=== PATIENT | male | born 1990 | race Caucasian/White ===

== ENCOUNTER → 2022-05-03 12:59 | Outpatient (BNVA) | payer OTHER, SELFPAY | PROVIDERS: PCP Internal Medicine; Visit Provider Nurse Practitioner Family | DX: F64.0 Transsexualism (principal); Z79.899 Other long term (current) drug therapy | CPT/HCPCS: 99202 ==

== ENCOUNTER 2022-10-31 14:48 | Outpatient (AMB) | payer OTHER, SELFPAY ==
--- NOTE | 2022-10-31 14:53 | MHC.OFFVIS ---
Intake Intake Visit Reasons: 6m follow up/labs ([facility]) Intake Note: Patient presents today for follow up testosterone management/labs Urology Medications: testosterone Blood Thinner: none Die Finisher Required: No Accompanied by: Self / Same As Patient Allergies No Known Allergies Allergy (Verified 10/31/22 15:25) Medication List - Last Reconciled 10/31/22 by MARGOT Anderson-SOHALI testosterone cypionate 200 mg IM QWEEK 30 days HPI HPI Comments History of Present Illness Details Andriy is a 32-year-old transgender male patient. He presents to the office today for follow-up. Of note, patient was seen approximately 6 months ago as a new patient for hormonal therapy. He reports being born a female however since 2008 has been undergoing testosterone hormonal treatment. He has a history of double mastectomy in 2010. He denies any other surgical procedures. Recent testosterone and CBC results reviewed with the patient today 11/06.... Testosterone:589 Testosterone free: 12.4% Hemoglobin:17.2 Hematocrit:50.0 When asked patient reports to be injecting 100 mg of testosterone weekly. He has been utilizing testosterone therapy for over the last 8 years. Discussed at full length abnormal levels of lipids in the blood, increase in blood pressure, cardiovascular disease, and or weight gain with testosterone therapy. Patient reports he is aware as he has done much research through his life time regarding testosterone replacement. Patient reports he typically works out 4-5 times weekly. However has been busy with his new job [employer] and has only been working out 2 days a week which are on his days off Friday and . 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 He denies any urinary issues. He reports be happy with current voiding parameters. In office urinalysis results reviewed with the patient today for He otherwise offers no issues or concerns at this time. [facility] Surgical History H/O bilateral mastectomy Review of Systems Const All systems reviewed & are unremarkable except as noted in HPI and below Reports no additional complaints Eyes Reports no additional complaints ENT Reports no additional complaints Card Reports no additional complaints Resp Reports no additional complaints GI Denies abdominal pain and Denies nausea Reports as per HPI Musc Denies no additional complaints Neuro Reports no additional complaints Psych Reports no additional complaints Miquel/Lymph Reports no additional complaints Aller/Immun Reports no additional complaints Physical Exam Const General: cooperative, healthy appearing, comfortable, no acute distress, well developed, alert and awake Nutritional Appearance: average body habitus Orientation/consciousness: patient oriented x3 Limitations: no limitations HEENT Head: Yes normal to inspection, Yes normocephalic and Yes atraumatic Ears: hearing grossly normal bilaterally Eyes General: appearance normal, both eyes and all related structures Neck Neck: Yes normal visual inspection and Yes trachea midline Chest Chest palpation & inspection: normal inspection of the chest Resp Effort & Inspection: normal respiratory effort and able to speak in complete sentences Cardio Rate: regular rate GI Inspection: Yes normal to inspection General: Yes no CVA tenderness Back/Spine/Pelvis Back: no CVA tenderness Skin General skin exam: no rashes or lesions noted Neuro General: patient oriented x3 Extrem General: Yes normal to inspection Psych Appearance: grossly normal and well kempt Mental Status: mental status grossly normal Speech and movement: Normal speech and movement present and Clear speech present Affect: normal affect Attitude: cooperative Thought process: Normal thought process present Thought content: Normal thought content present Insight: Good insight present (Psych) Judgement: Good judgement present (Psych) Results AMB Urinalysis, Automated UA Leukoctes 15 Khalif/uL Last Edit by [employer] on 10/31/22 15:06 UA Nitrite Negative Last Edit by [employer] on 10/31/22 15:06 UA Urobilinogen 0.2 mg/dL Last Edit by [employer] on 10/31/22 15:06 UA Protein 0 mg/dL Last Edit by [employer] on 10/31/22 15:06 UA pH 6.0 Last Edit by [employer] on 10/31/22 15:06 UA Blood 0 Ignacio/uL Last Edit by [employer] on 10/31/22 15:06 UA Specific [place] 1.015 Last Edit by [employer] on 10/31/22 15:06 UA Ketone Negative Last Edit by [employer] on 10/31/22 15:06 UA Bilirubin 0 mg/dL Last Edit by [employer] on 10/31/22 15:06 UA Glucose 0 mg/dL Last Edit by [employer] on 10/31/22 15:06 Results Reviewed Results Reviewed: Laboratory Last Values Urine pH (Auto) 6.0 08/17/23 14:54 Specific [place] (Auto) 1.015 10/31/22 14:54 Urine Protein (Auto) 0 mg/dL 10/31/22 14:54 Glucose (UA)(Auto) 0 mg/dL 10/31/22 14:54 Urine Ketones (Auto) Negative 10/31/22 14:54 Urine Blood (Auto) 0 Ignacio/uL 10/31/22 14:54 Urine Nitrite (Auto) Negative 10/31/22 14:54 Urine Bilirubin (Auto) 0 mg/dL 10/31/22 14:54 Urine Urobilinogen (Auto) 0.2 mg/dL 10/31/22 14:54 Leukocyte Esterase (Auto) 15 Khalif/uL 10/31/22 14:54 Assessment & Plan Assessment & Plan (1) 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 Recent testosterone and CBC results reviewed with the patient today; as noted above. Continue with testosterone as discussed and prescribed; continue with 100 mg weekly; refill prescription provided Discussed at length affects of testosterone on the body as well as overall health and well-being. Patient denies any urinary issues or concerns at this time. He is happy with his current voiding parameters Testosterone, testosterone free and total, and CBC in 6 months Follow-up in 6 months with labs to be completed prior or sooner with any issues, concerns, and or questions. 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 All questions were answered. Physical exam, labs, and imaging were discussed and reviewed in detail. As well as risks, benefits, and discussion of treatment choices. No major barriers to understanding were identified. The patient expressed understanding and agreement with the above treatment plan. The patient was made aware they should contact our office by phone for worsening of their current condition, the appearance of new symptoms, or with any questions or concerns. Compliance is encouraged with any medications and follow up testing that is ordered. It is a privilege to be allowed the opportunity to participate in? your urological care.? Again, if you have any questions or concerns If you have any questions or concerns please do not hesitate to contact me. The office is [phone]. This note is constructed using voice recognition software. While every effort has been made to ensure accuracy top coater errors may have been included. 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
== END 2022-10-31 15:25 | disposition home or self-care (01) ==
PROVIDERS: PCP Internal Medicine; Visit Provider Nurse Practitioner Family
DX: F64.0 Transsexualism (principal); Z79.899 Other long term (current) drug therapy; Z13.9 Encounter for screening, unspecified
CPT/HCPCS: 99213

== ENCOUNTER → 2022-10-31 14:48 | Outpatient (BNVA) | payer OTHER, SELFPAY | PROVIDERS: Visit Provider Nurse Practitioner Family | DX: F64.0 Transsexualism (principal); Z79.899 Other long term (current) drug therapy | CPT/HCPCS: 81003; 99212 ==

== ENCOUNTER 2023-05-01 15:25 | Outpatient (AMB) | payer OTHER, SELFPAY ==
--- NOTE | 2023-05-01 15:37 | A.OFFVIS_ITS ---
Intake Intake Visit Reasons: 6m/labs Intake Note: Patient presents today for follow up testosterone management/labs (testosterone labs pending) Urology Medications: testosterone Blood Thinner: none Leather Cleaner Required: No Accompanied by: Self / Same As Patient Allergies No Known Allergies Allergy (Verified 05/01/23 21:22) Medication List - Last Reconciled 05/01/23 by PEDRO AndersonP- testosterone cypionate 200 mg IM QWEEK 30 days HPI HPI Comments History of Present Illness Details Andriy is a 32-year-old transgender male patient. He presents to the office today for follow-up. He reports being born a female however since 2008 has been undergoing testosterone hormonal treatment. He has a history of double mastectomy in 2010. He denies any other surgical procedures. Recent CBC results reviewed with the patient however testosterone remains pending. Testosterone: 11/06--589, 05/10 pending Testosterone free: 11/06--12.4%, 05/10 pending Hemoglobin: 11/06--17.2, 05/10--16.0 Hematocrit: 11/06--50.0, 05/10--47.4 When asked patient reports to be injecting 100 mg of testosterone weekly. He has been utilizing testosterone therapy for over the last 10 years. Discussed at length abnormal levels of lipids in the blood, increase in blood pressure, cardiovascular disease, and or weight gain with testosterone therapy. Patient reports he is aware as he has done much research through his life time regarding testosterone replacement. Patient reports he typically works out 4-5 times weekly. 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 He denies any urinary issues. He reports be happy with current voiding parameters. In office urinalysis results reviewed with the patient today. He discusses how his mom is currently dealing with multiple medical issues. He otherwise offers no issues or concerns at this time. [facility] Surgical History H/O bilateral mastectomy Review of Systems Const All systems reviewed & are unremarkable except as noted in HPI and below Reports no additional complaints Eyes Reports no additional complaints ENT Reports no additional complaints Card Reports no additional complaints Resp Reports no additional complaints GI Denies abdominal pain and Denies nausea Reports as per HPI Musc Denies no additional complaints Neuro Reports no additional complaints Psych Reports no additional complaints Miquel/Lymph Reports no additional complaints Aller/Immun Reports no additional complaints Physical Exam Const General: cooperative, healthy appearing, comfortable, no acute distress, well developed, alert and awake Nutritional Appearance: average body habitus Orientation/consciousness: patient oriented x3 Limitations: no limitations HEENT Head: Yes normal to inspection, Yes normocephalic and Yes atraumatic Ears: hearing grossly normal bilaterally Eyes General: appearance normal, both eyes and all related structures Neck Neck: Yes normal visual inspection and Yes trachea midline Chest Chest palpation & inspection: normal inspection of the chest Resp Effort & Inspection: normal respiratory effort and able to speak in complete sentences Cardio Rate: regular rate GI Inspection: Yes normal to inspection General: Yes no CVA tenderness Back/Spine/Pelvis Back: no CVA tenderness Skin General skin exam: no rashes or lesions noted Neuro General: patient oriented x3 Extrem General: Yes normal to inspection Psych Appearance: grossly normal and well kempt Mental Status: mental status grossly normal Speech and movement: Normal speech and movement present and Clear speech present Affect: normal affect Attitude: cooperative Thought process: Normal thought process present Thought content: Normal thought content present Insight: Good insight present (Psych) Judgement: Good judgement present (Psych) Results AMB Urinalysis, Automated UA Leukoctes 0 Khalif/uL Last Edit by [employer] on 05/01/23 15:50 UA Nitrite Negative Last Edit by [employer] on 05/01/23 15:50 UA Urobilinogen 0.2 mg/dL Last Edit by [employer] on 05/01/23 15:50 UA Protein 15 mg/dL Last Edit by [employer] on 05/01/23 15:50 UA pH 7.0 Last Edit by [employer] on 05/01/23 15:50 UA Blood 0 Ignacio/uL Last Edit by [employer] on 05/01/23 15:50 UA Specific [place] 1.015 Last Edit by [employer] on 05/01/23 15:50 UA Ketone Negative Last Edit by [employer] on 05/01/23 15:50 UA Bilirubin 0 mg/dL Last Edit by [employer] on 05/01/23 15:50 UA Glucose 0 mg/dL Last Edit by [employer] on 05/01/23 15:50 Results Reviewed Results Reviewed: Laboratory Last Values Urine pH (Auto) 7.0 05/01/23 15:38 Specific [place] (Auto) 1.015 05/01/23 15:38 Urine Protein (Auto) 15 mg/dL 05/01/23 15:38 Glucose (UA)(Auto) 0 mg/dL 05/01/23 15:38 Urine Ketones (Auto) Negative 05/01/23 15:38 Urine Blood (Auto) 0 Ignacio/uL 05/01/23 15:38 Urine Nitrite (Auto) Negative 05/01/23 15:38 Urine Bilirubin (Auto) 0 mg/dL 05/01/23 15:38 Urine Urobilinogen (Auto) 0.2 mg/dL 05/01/23 15:38 Leukocyte Esterase (Auto) 0 Khalif/uL 05/01/23 15:38 Assessment & Plan Assessment & Plan (1) 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 Recent CBC results reviewed with the patient today; as noted above; testosterone is pending will call patient with results. Continue with testosterone as discussed and prescribed; continue with 100 mg weekly; refill prescription provided Discussed at length affects of testosterone on the body as well as overall health and well-being. Patient denies any urinary issues or concerns at this time. He is happy with his current voiding parameters Testosterone, testosterone free and total, CBC, BMP, and liver enzymes in 6 months Follow-up in 6 months with labs to be completed prior or sooner with any issues, concerns, and or questions. 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 All questions were answered. Physical exam, labs, and imaging were discussed and reviewed in detail. As well as risks, benefits, and discussion of treatment choices. No major barriers to understanding were identified. The patient expressed understanding and agreement with the above treatment plan. The patient was made aware they should contact our office by phone for worsening of their current condition, the appearance of new symptoms, or with any questions or concerns. Compliance is encouraged with any medications and follow up testing that is ordered. It is a privilege to be allowed the opportunity to participate in? your urological care.? Again, if you have any questions or concerns If you have any questions or concerns please do not hesitate to contact me. The office is [phone]. This note is constructed using voice recognition software. While every effort gibson s been made to ensure accuracy geriatric assistant errors may have been included. Yours sincerely, SETH Anderson Coding Level of Care Code Est Pt Level 4 (08198) Diagnoses Transgender man on hormone therapy F64.0; Z79.899
== END 2023-05-01 16:17 | disposition home or self-care (01) ==
LOC: HO.HUSH 15:25
PROVIDERS: PCP Internal Medicine; Visit Provider Nurse Practitioner Family
DX: F64.0 Transsexualism (principal); Z79.899 Other long term (current) drug therapy
CPT/HCPCS: 99214

== ENCOUNTER → 2023-05-01 15:25 | Outpatient (BNVA) | payer OTHER, SELFPAY | PROVIDERS: PCP Internal Medicine; Visit Provider Nurse Practitioner Family | DX: F64.0 Transsexualism (principal); Z79.899 Other long term (current) drug therapy | CPT/HCPCS: 81003; 99212 ==

== ENCOUNTER 2023-11-05 11:40 | Outpatient (AMB) | payer OTHER, SELFPAY ==
--- NOTE | 2023-11-05 11:40 | MHC.OFFVIS ---
Intake Visit Reasons: 6m/labs Intake Note: Patient presents today for follow up testosterone management/labs Urology Medications: testosterone Blood Thinner: none Fur Operator Required: No Accompanied by: Self / Same As Patient Allergies No Known Allergies Allergy (Verified 11/05/23 12:30) Medication List - Last Reconciled 11/05/23 by SETH Anderson testosterone cypionate 200 mg IM QWEEK 30 days HPI Comments Details: Andriy is a 33-year-old transgender male patient. He is being followed up via video telehealth. He reports being born a female however since 2008 has been undergoing testosterone hormonal treatment. He has a history of double mastectomy in 2010. He denies any other surgical procedures. Recent CBC results and testosterone results reviewed with the patient today. As noted and trended below: Testosterone: 11/06 589, 05/10 499, 11/07 292 Testosterone free: 11/06--12.4%, 05/10 16.5, 11/07 6.60 Hemoglobin: 11/06 17.2, 05/10 16.0, 11/07 16.6 Hematocrit: 11/06 50.0, 05/10 47.4, 11/07 46.4 He reports over the last 2 months he has been inconsistent with testosterone replacement. When asked patient reports to be injecting 100 mg of testosterone weekly. He reports he had been injecting testosterone 50 mg 2 times per week and felt this made him feel better however has been busy at work and therefore has been inconsistent with testosterone replacement. He has been utilizing testosterone therapy for over the last 11 years. Discussed at length abnormal levels of lipids in the blood, increase in blood pressure, cardiovascular disease, and or weight gain with testosterone therapy. Patient reports he is aware as he has done much research through his life time regarding testosterone replacement. Patient reports he typically works out 4-5 times weekly. 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 He denies any urinary issues. He reports be happy with current voiding parameters. In office urinalysis results reviewed with the patient today. He discusses how his mom is currently dealing with multiple medical issues. He otherwise offers no issues or concerns at this time. [facility] Surgical History H/O bilateral mastectomy Review of Systems Const All systems reviewed & are unremarkable except as noted in HPI and below Reports no additional complaints Eyes Reports no additional complaints ENT Reports no additional complaints Card Reports no additional complaints Resp Reports no additional complaints GI Denies abdominal pain and Denies nausea Reports as per HPI Musc Denies no additional complaints Neuro Reports no additional complaints Psych Reports no additional complaints Miquel/Lymph Reports no additional complaints Aller/Immun Reports no additional complaints Physical Exam Const General: cooperative, healthy appearing, comfortable, no acute distress, well developed, alert and awake Orientation/consciousness: patient oriented x3 Resp Effort & Inspection: normal respiratory effort and able to speak in complete sentences Neuro General: patient oriented x3 Psych Mental Status: mental status grossly normal Speech and movement: Clear speech present Attitude: cooperative Thought process: Normal thought process present Thought content: Normal thought content present Insight: Fair insight present (Psych) Judgement: Fair judgement present (Psych) Telehealth Telehealth Telehealth Platform: [employer] Location of provider rendering services: practice address Location of patient: address on file Patient Identification confirmed using: Name, : Yes Telehealth method: video Patient verbally consented to treatment: Yes Patient verbally consented to billing insurance company: Yes Patient informed of any privacy concerns related to visit: Yes Minutes spent on Phone/Video with Pt.: 15 Assessment & Plan Assessment & Plan (1) 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 Continue with testosterone as discussed and prescribed; continue with 100 mg weekly; refill prescription provided Discussed at length affects of testosterone on the body as well as overall health and well-being. Patient denies any urinary issues or concerns at this time. He is happy with his current voiding parameters Refill provided. Discussed, educated, and stressed the importance of taking medication as prescribed. Will reassess labs in 3 months (CBC and testosterone free and total) Follow-up in 3 months with labs to be completed prior or sooner with any issues, concerns, and or questions. 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 All questions were answered. Physical exam, labs, and imaging were discussed and reviewed in detail. As well as risks, benefits, and discussion of treatment choices. No major barriers to understanding were identified. The patient expressed understanding and agreement with the above treatment plan. The patient was made aware they should contact our office by phone for worsening of their current condition, the appearance of new symptoms, or with any questions or concerns. Compliance is encouraged with any medications and follow up testing that is ordered. It is a privilege to be allowed the opportunity to participate in? your urological care.? Again, if you have any questions or concerns If you have any questions or concerns please do not hesitate to contact me. The office is [phone]. This note is constructed using voice recognition software. While every effort has been made to ensure accuracy jacker feeder errors may have been included. Yours sincerely, SETH Anderson Coding Level of Care Code Tele Est Pt Level 3 (95054) Diagnoses Transgender man on hormone therapy F64.0; Z79.899
== END 2023-11-05 12:32 | disposition home or self-care (01) ==
LOC: HO.HUSH 11:40
PROVIDERS: PCP Internal Medicine; Visit Provider Nurse Practitioner Family
DX: F64.0 Transsexualism (principal); Z79.899 Other long term (current) drug therapy
CPT/HCPCS: 99213

== ENCOUNTER → 2023-11-05 11:40 | Outpatient (BNVA) | payer OTHER, SELFPAY | PROVIDERS: PCP Internal Medicine; Visit Provider Nurse Practitioner Family ==

== ENCOUNTER 2024-02-04 13:26 | Outpatient (AMB) | payer OTHER, SELFPAY ==
--- NOTE | 2024-02-04 13:43 | A.OFFVIS_ITS ---
Intake Visit Reasons: 3m/labs Intake Note: Patient presents today for follow up testosterone management/labs Urology Medications: testosterone Blood Thinner: none Living Supervisor Required: No Accompanied by: Self / Same As Patient Allergies No Known Allergies Allergy (Verified 02/04/24 14:19) Medication List - Last Reconciled 02/04/24 by MARGOT Anderson-SOHAIL testosterone cypionate 200 mg IM QWEEK 30 days HPI Comments Details: Andriy is a 33-year-old transgender male patient. He presents to the office today for follow-up. He reports being born a female however since 2008 has been undergoing testosterone hormonal treatment. He has a history of double mastectomy in 2010. He denies any other surgical procedures. Recent CBC results and testosterone results reviewed with the patient today. As noted and trended below: Testosterone: 11/06 589, 05/10 499, 11/07 292, 02/07 894 Testosterone free: 11/06--12.4%, 05/10 16.5, 11/07 6.60, 02/07 23.4 Hemoglobin: 11/06 17.2, 05/10 16.0, 11/07 16.6, 02/07 18.1 Hematocrit: 11/06 50.0, 05/10 47.4, 11/07 46.4, 02/07 50.2 In discussion with the patient today he reports to be doing and feeling well. He reports to be injecting testosterone 50 mg 2 times per week and felt this has been helpful in normalizing his overall health and well-being. He discusses being currently unemployed and is attempting to catch up on his house work. He discusses his new dog. He has been utilizing testosterone therapy for over the last 12 years. Discussed abnormal levels of lipids in the blood, increase in blood pressure, cardiovascular disease, and or weight gain with testosterone therapy. Patient reports he is aware as he has done much research through his life time regarding testosterone replacement. Patient reports he typically works out 4-5 times weekly. 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 He denies any urinary issues. He reports be happy with current voiding parameters. In office urinalysis results reviewed with the patient today. He otherwise offers no issues or concerns at this time. [facility] Surgical History H/O bilateral mastectomy Review of Systems Const All systems reviewed & are unremarkable except as noted in HPI and below Reports no additional complaints Eyes Reports no additional complaints ENT Reports no additional complaints Card Reports no additional complaints Resp Reports no additional complaints GI Denies abdominal pain and Denies nausea Reports as per HPI Musc Denies no additional complaints Neuro Reports no additional complaints Psych Reports no additional complaints Miquel/Lymph Reports no additional complaints Aller/Immun Reports no additional complaints Physical Exam Const General: cooperative, healthy appearing, comfortable, no acute distress, well developed, alert and awake Orientation/consciousness: patient oriented x3 Limitations: no limitations HEENT Head: Yes normal to inspection, Yes normocephalic and Yes atraumatic Ears: hearing grossly normal bilaterally Eyes General: appearance normal, both eyes and all related structures Neck Neck: Yes normal visual inspection and Yes trachea midline Chest Chest palpation & inspection: normal inspection of the chest Resp Effort & Inspection: normal respiratory effort and able to speak in complete sentences Cardio Rate: regular rate GI Inspection: Yes normal to inspection General: Yes no CVA tenderness Back/Spine/Pelvis Back: no CVA tenderness Skin General skin exam: no rashes or lesions noted Neuro General: patient oriented x3 Extrem General: Yes normal to inspection Psych Appearance: grossly normal and well kempt Mental Status: mental status grossly normal Speech and movement: Clear speech present Affect: normal affect Attitude: cooperative Thought process: Normal thought process present Thought content: Normal thought content present Insight: Fair insight present (Psych) Judgement: Fair judgement present (Psych) Results AMB Urinalysis, Automated UA Leukoctes 0 Khalif/uL Last Edit by [employer] on 02/04/24 14:11 UA Nitrite Last Edit by [employer] on 02/04/24 14:11 UA Urobilinogen 0.2 mg/dL Last Edit by [employer] on 02/04/24 14:11 UA Protein 0 mg/dL Last Edit by [employer] on 02/04/24 14:11 UA pH 7.0 Last Edit by [employer] on 02/04/24 14:11 UA Blood 0 Ignacio/uL Last Edit by [employer] on 02/04/24 14:11 UA Specific [place] 1.010 Last Edit by [employer] on 02/04/24 14:11 UA Ketone Last Edit by [employer] on 02/04/24 14:11 UA Bilirubin 0 mg/dL Last Edit by [employer] on 02/04/24 14:11 UA Glucose 0 mg/dL Last Edit by [employer] on 02/04/24 14:11 Results Reviewed Results Reviewed: Laboratory Last Values Urine pH (Auto) 7.0 02/04/24 14:06 Specific [place] (Auto) 1.010 02/04/24 14:06 Urine Protein (Auto) 0 mg/dL 02/04/24 14:06 Glucose (UA)(Auto) 0 mg/dL 02/04/24 14:06 Urine Blood (Auto) 0 Ignacio/uL 02/04/24 14:06 Urine Bilirubin (Auto) 0 mg/dL 02/04/24 14:06 Urine Urobilinogen (Auto) 0.2 mg/dL 02/04/24 14:06 Leukocyte Esterase (Auto) 0 Khalif/uL 02/04/24 14:06 Assessment & Plan Assessment & Plan (1) 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 Continue with testosterone as discussed and prescribed; continue with 100 mg weekly; refill prescription provided Discussed at length affects of testosterone on the body as well as overall health and well-being. Patient denies any urinary issues or concerns at this time. He is happy with his current voiding parameters Refill provided. Discussed, educated, and stressed the importance of taking medication as prescribed. Will reassess labs in 6 months (CBC and testosterone free and total) Follow-up in 6 months with labs to be completed prior or sooner with any issues, concerns, and or questions. 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 All questions were answered. Physical exam, labs, and imaging were discussed and reviewed in detail. As well as risks, benefits, and discussion of treatment choices. No major barriers to understanding were identified. The patient expressed understanding and agreement with the above treatment plan. The patient was made aware they should contact our office by phone for worsening of their current condition, the appearance of new symptoms, or with any questions or concerns. Compliance is encouraged with any medications and follow up testing that is ordered. It is a privilege to be allowed the opportunity to participate in? your urological care.? Again, if you have any questions or concerns If you have any questions or concerns please do not hesitate to contact me. The office is [phone]. This note is constructed using voice recognition software. While every effort has been made to ensure accuracy electronic tester errors may have been included. Yours sincerely, SETH Anderson Coding Level of Care Code Est Pt Level 3 (13677) Diagnoses Transgender man on hormone therapy F64.0; Z79.899
== END 2024-02-04 14:21 | disposition home or self-care (01) ==
PROVIDERS: PCP Internal Medicine; Visit Provider Nurse Practitioner Family
DX: F64.0 Transsexualism (principal); Z79.899 Other long term (current) drug therapy; Z13.9 Encounter for screening, unspecified
CPT/HCPCS: 99213

== ENCOUNTER → 2024-02-04 13:26 | Outpatient (BNVA) | payer OTHER, SELFPAY | PROVIDERS: PCP Internal Medicine; Visit Provider Nurse Practitioner Family | DX: F64.0 Transsexualism (principal); Z79.899 Other long term (current) drug therapy | CPT/HCPCS: 81003; 99212 ==

== ENCOUNTER 2024-07-08 09:18 | Outpatient (AMB) | payer OTHER, SELFPAY ==
--- NOTE | 2024-07-08 09:24 | A.OFFVIS_ITS ---
Intake Visit Reasons: 6m/labs Intake Note: Patient presents today for follow up testosterone management/labs Testosterone: 1150; Free Testosterone: 32.4 Urology Medications: testosterone Blood Thinner: none Clothing Designer Required: No Accompanied by: Self / Same As Patient Allergies No Known Allergies Allergy (Verified 07/08/24 10:02) Medication List - Last Reconciled 07/08/24 by SETH Anderson testosterone cypionate 200 mg IM QWEEK 30 days HPI Comments Details: Andriy is a 34-year-old transgender male patient of Dr. Michele. He presents to the office today for follow-up. He reports being born a female however since 2008 has been undergoing testosterone hormonal treatment. He has a history of double mastectomy in 2010. He denies any other surgical procedures. Recent CBC results and testosterone results reviewed with the patient today. As noted and trended below: Testosterone: 11/06 589, 05/10 499, 11/07 292, 02/07 894, 07/09 1150 Testosterone free: 11/06--12.4%, 05/10 16.5, 11/07 6.60, 02/07 23.4, 07/09 32.4 Hemoglobin: 11/06 17.2, 05/10 16.0, 11/07 16.6, 02/07 18.1, 07/09 17.3 Hematocrit: 11/06 50.0, 05/10 47.4, 11/07 46.4, 02/07 50.2, 07/09 50.0 In discussion with the patient today he reports to be doing and feeling well. He reports to be injecting testosterone 50 mg 2 times per week and felt this has been helpful in normalizing his overall health and well-being. He discusses being busy at work. He has been utilizing testosterone therapy for over the last 13 years. Discussed abnormal levels of lipids in the blood, increase in blood pressure, cardiovascular disease, and or weight gain with testosterone therapy. He discusses having received letter from PCP and will be establishing new PCP with [facility]. We discussed importance of assessing cardiovascular function given affects of testosterone replacement. He denies any urinary issues. He reports be happy with current voiding parameters. In office urinalysis results reviewed with the patient today. He does report a history of an umbilical hernia and is enquiring referral to general surgery for further assessment evaluation. He otherwise offers no issues or concerns at this time. History of Present Illness The patient is a 34-year-old male presenting with an umbilical hernia and reyna rns regarding testosterone therapy management. The umbilical hernia was identified a year ago during a routine physical examination. 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 The discomfort is not described as pain but is noticeable during physical exertion. He is concerned about its progression. Testosterone therapy management involves injections, with current lab results demonstrating testosterone levels at the higher end of the normal range. The patient has been inconsistent with the timing of lab tests relative to injection dates, affecting result consistency. His therapy is adjusted in conjunction with his exercise schedule, and he seeks assistance in maintaining optimal testosterone levels while monitoring potential cardiovascular impacts. Plan An umbilical hernia consult with general surgery is planned due to increasing discomfort related to physical exertion. No immediate intervention is required; monitoring is advised. For testosterone therapy, I advised consistent timing between injections and lab tests for accurate readings. Current dosage maintenance is appropriate unless cardiovascular risks emerge. Primary care will be consulted for comprehensive health assessments, including testosterone management monitoring via annual bloodwork. Patient was informed and verbally consented to the use of an ambient scribe for clinic note documentation during this visit. Discussion Notes During our discussion, I advised the patient of the potential need for surgical intervention for the umbilical hernia and explained the risks and benefits. The patient was receptive to a referral for a surgical consultation, understanding the possibility of future complications. Regarding testosterone therapy, we discussed the significance of proper synchronization of injection and lab testing and its impact on results, addressing the importance of maintaining patient safety. We also discussed the coordination of care with his primary physician to ensure comprehensive health monitoring, particularly concerning cardiovascular health, given his elevated testosterone levels. Follow-up was discussed for surgical consult and regular testosterone monitoring. [facility] Surgical History H/O bilateral mastectomy Review of Systems Const All systems reviewed & are unremarkable except as noted in HPI and below Physical Exam Const General: cooperative, healthy appearing, comfortable, no acute distress, well developed, alert and awake Orientation/consciousness: patient oriented x3 Limitations: no limitations HEENT Head: Yes normal to inspection, Yes normocephalic and Yes atraumatic Ears: hearing grossly normal bilaterally Eyes General: appearance normal, both eyes and all related structures Neck Neck: Yes normal visual inspection and Yes trachea midline Chest Chest palpation & inspection: normal inspection of the chest Resp Effort & Inspection: normal respiratory effort and able to speak in complete sentences Cardio Rate: regular rate GI Inspection: Yes normal to inspection General: Yes no CVA tenderness Back/Spine/Pelvis Back: no CVA tenderness Skin General skin exam: no rashes or lesions noted Neuro General: patient oriented x3 Extrem General: Yes normal to inspection Psych Appearance: grossly normal and well kempt Mental Status: mental status grossly normal Speech and movement: Clear speech present Affect: normal affect Attitude: cooperative Thought process: Normal thought process present Thought content: Normal thought content present Insight: Fair insight present (Psych) Judgement: Fair judgement present (Psych) Results AMB Urinalysis, Automated UA Leukoctes 0 Khalif/uL Last Edit by [email or web address] on 07/08/24 09:36 UA Nitrite Last Edit by [email or web address] on 07/08/24 09:36 UA Urobilinogen 0.2 mg/dL Last Edit by [email or web address] on 07/08/24 09:36 UA Protein 0 mg/dL Last Edit by [email or web address] on 07/08/24 09:36 UA pH 6.5 Last Edit by [email or web address] on 07/08/24 09:36 UA Blood 0 Ignacio/uL Last Edit by [email or web address] on 07/08/24 09:36 UA Specific [place] 1.010 Last Edit by [email or web address] on 07/08/24 09:36 UA Ketone Last Edit by [email or web address] on 07/08/24 09:36 UA Bilirubin 0 mg/dL Last Edit by [email or web address] on 07/08/24 09:36 UA Glucose 0 mg/dL Last Edit by [email or web address] on 07/08/24 09:36 Results Reviewed Results Reviewed: Laboratory Last Values Urine pH (Auto) 6.5 07/08/24 09:29 Specific [place] (Auto) 1.010 07/08/24 09:29 Urine Protein (Auto) 0 mg/dL 07/08/24 09:29 Glucose (UA)(Auto) 0 mg/dL 07/08/24 09:29 Urine Blood (Auto) 0 Ignacio/uL 07/08/24 09:29 Urine Bilirubin (Auto) 0 mg/dL 07/08/24 09:29 Urine Urobilinogen (Auto) 0.2 mg/dL 07/08/24 09:29 Leukocyte Esterase (Auto) 0 Khalif/uL 07/08/24 09:29 Assessment & Plan Assessment & Plan (1) 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 Continue with testosterone as discussed and prescribed; refill prescription provided Discussed at length affects of testosterone on the body as well as overall health and well-being. Patient denies any urinary issues or concerns at this time. He is happy with his current voiding parameters Will refer to general surgery for further assessment evaluation of umbilical hernia. Discussed, educated, and stressed the importance of taking medication as prescribed. Will reassess labs in 6 months (CBC and testosterone free and total) Follow-up in 6 months with labs to be completed prior or sooner with any issues, concerns, and or questions. 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 All questions were answered. Physical exam, labs, and imaging were discussed and reviewed in detail. As well as risks, benefits, and discussion of treatment choices. No major barriers to understanding were identified. The patient expressed understanding and agreement with the above treatment plan. The patient was made aware they should contact our office by phone for worsening of their current condition, the appearance of new symptoms, or with any questions or concerns. Compliance is encouraged with any medications and follow up testing that is ordered. It is a privilege to be allowed the opportunity to participate in? your urological care.? Again, if you have any questions or concerns If you have any questions or concerns please do not hesitate to contact me. The office is [phone]. This note is constructed using voice recognition software. While every effort has been made to ensure accuracy hollow handle knife assembler errors may have been included. Yours sincerely, SETH Anderson Coding Level of Care Code Est Pt Level 3 (45369) Diagnoses Transgender man on hormone therapy F64.0; Z79.899
== END 2024-07-08 10:02 | disposition home or self-care (01) ==
LOC: HO.HUSH 09:18
PROVIDERS: PCP Internal Medicine; Visit Provider Nurse Practitioner Family
DX: F64.0 Transsexualism (principal); Z79.899 Other long term (current) drug therapy; Z13.9 Encounter for screening, unspecified
CPT/HCPCS: 99213

== ENCOUNTER → 2024-07-08 09:18 | Outpatient (BNVA) | payer OTHER, SELFPAY | PROVIDERS: PCP Internal Medicine; Visit Provider Nurse Practitioner Family | DX: K42.9 Umbilical hernia without obstruction or gangrene (principal); F64.0 Transsexualism; Z79.899 Other long term (current) drug therapy | CPT/HCPCS: 81003; 99212 ==

== ENCOUNTER 2024-09-08 09:43 | Outpatient (AMB) | payer OTHER, SELFPAY ==
--- NOTE | 2024-09-08 09:44 | MHC.OFFVIS ---
Vital Signs 09/08/24 09:52 Height 6 ft Weight 232 lb BMI 31.5 BP 134/72 Blood Pressure Location Rt brachial Position Sitting Pulse 56 Intake Visit Reasons: Umbilical hernia Intake Note: Patient referred by Анна QUINTANA for umbilical hernia. Present since last year. Patient c/o: only bothersome at times. Small bulge noticeable. Assistant General Manager Required: No Accompanied by: Self / Same As Patient Allergies No Known Allergies Allergy (Verified 09/08/24 09:49) Medication List - Last Reconciled 09/08/24 by Bill Hatch MD testosterone cypionate 200 mg IM QWEEK 30 days HPI HPI Umbilical hernia: Details: 34-year-old male referred for an umbilical hernia. 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 He does state that since that time, he was noticing this lump on his umbilicus that would be spontaneous reducible He says that he works with a lot of heavy lifting so he would notice this hernia periodically at work. He describes occasional discomfort. He does not think that the hernia has is increased in size. He says he is healthy overall. [facility] Surgical History H/O bilateral mastectomy Family History Paternal Grandmother Ovarian cancer Paternal Aunt Ovarian cancer Social History Alcohol intake: never Patient Tobacco Use Status: Never used Tobacco Review of Systems Const Denies chills and Denies fever(s) Card Denies chest pain, Denies dyspnea and Denies dyspnea on exertion Resp Denies cough, Denies dyspnea and Denies dyspnea on exertion GI Denies hematochezia and Denies change in bowel habits Denies hematuria and Denies difficulty urinating Musc Denies back pain and Denies limited range of motion Neuro Denies focal weakness and Denies convulsions Psych Denies depression and Denies mood swings Physical Exam Vital Signs: Last Vital Signs Pulse 56 09/08/24 09:52 BP 134/72 09/08/24 09:52 BMI result Body Mass Index 31.5 Const General: comfortable and no acute distress Orientation/consciousness: patient oriented x3 Neck Neck: Yes no lymphadenopathy Resp Auscultation: clear to auscultation bilaterally Cardio Rhythm: regular rhythm GI Other: Umbilical hernia, reducible, about 2 cm in diameter, nontender Palpation (GI): Soft to palpation, nontender and no guarding Neuro General: patient oriented x3 Assessment & Plan Assessment & Plan (1) Umbilical hernia: Code(s): K42.9 - Umbilical hernia without obstruction or gangrene Category: Medical Plan: He has a reducible umbilical hernia as described above. He wants this repaired as his work entails a lot of heavy lifting I had a long discussion with him about the technique of repair of the umbilical hernia with possible mesh. I reviewed the risks including but not limited to bleeding, infections, recurrence, injury to the bowel or other organs, inherent risks of anesthesia, as well as the benefits and alternatives. I also described to be him what to expect postoperatively He understands and says he will schedule for this. Coding Level of Care Code New Pt Level 3 (65767) Diagnoses Umbilical hernia K42.9
[2024-09-08 09:52] VITALS: BP 134/72; PULSE 56; BMI 31.5
== END 2024-09-08 10:28 | disposition home or self-care (01) ==
LOC: HO.HGS 09:43
PROVIDERS: PCP Internal Medicine; Visit Provider Surgery
DX: K42.9 Umbilical hernia without obstruction or gangrene (principal)
CPT/HCPCS: 99203

== ENCOUNTER → 2024-09-08 09:43 | Outpatient (BNVA) | payer OTHER, SELFPAY | PROVIDERS: PCP Internal Medicine; Visit Provider Surgery | DX: K42.9 Umbilical hernia without obstruction or gangrene (principal) | CPT/HCPCS: 99202 ==

== ENCOUNTER 2025-01-18 05:54 | Day surgery (SDC) | payer OTHER, SELFPAY ==
--- OUTSIDE RECORDS SUMMARY | 2025-01-13 17:47 | XMS_ITS | Encounter Summary ---
Author Organization [facility] Address [address] [place] [address] [address] [place] [address] Phone Care Team Providers Care Mechanic/Welder Name Role Phone Greta Curtis MD, MPH Primary Care Provid er Encounter Details Date Type Department Care Team (Late st Contact Info) Description 2021 Transcribe Orders [facility] [address] [place] [address] Greta Curtis MD, MPH [address] [facility] [address] [place] [address] [email or web address] Social History Tobacco Use Types Packs/Day Years Used Date Smoking Tobacco: Former Cigarettes 0.3 10 2 2015 Smokeless Tobacco: Former Comments:1 PPW per pt report Alcohol Use Standard Drinks/Week Comments Yes 0 (1 standard drink = 0.6 oz pur e alcohol) 3-4x weekly Child or Family Care Answer Date Record ed Do you have problems with on e of the following making it difficult for you to work, study, or receive health care? No 05/21/2021 Education Answer Date Recorded Are you interested in help w ith more adult education (for example, completing high school, GED, job training, learning the Naur[place] language, technical skills, or developing parenting skills)? No 05/21/2021 Food Answer Date Recorded Within the past 6 months we worried whether our food would run out before we got money to buy more. Never True 05/21/2021 Within the past 6 months the food we bought just didn't last and we didn't have enough money to get more. Never True Residential Stability Answer Date Recor ded What is your housing situation today? I have jw sing 05/21/2021 How many times have you move d in the past 12 months? Zero (I did not move) 05/21/2021 Paying for Meds Answer Date Recorded Do you have trouble paying for medicines? No 05/21/2021 Paying Utility Bills Answer Date Record ed Do you have trouble paying your heating or elect ricity bill? No 05/21/2021 Transportation Answer Date Recorded Has the lack of transportati on kept you from medical appointments or from getting medications? No 05/21/2021 Unemployment Answer Date Recorded Are you currently unemployed or working on a part-time or temporary basis, and looking for work? No 05/21/2021 Comments Unknown Sex and Gender Information Value Date Recorded Sex Assigned at Female 04/30/2018 8:16 AM EST Legal Sex Male 9:04 PM EDT Gender Identity Male 04/30/2018 8:16 AM EST Sexual Orientation Pansexual 04/30/2018 8: 16 AM EST documented as of this encounter Plan of Treatment Not on file documented as of this encounter Visit Diagnoses Not on filedocumented in this encounter Additional Health Concerns Assessment Noted Time PHQ-2 Depression Total Score: 0 05/22/19 22 8:45 AM EST documented as of this encounter Care Teams Mechanic/Welder Relationship Specialty Start Date End Date Greta Curtis MD, MPH [address] [place] [address] [email or web address] PCP - General Family Medicine 12/01/20 documented as of this encounter Additional Source Comments The information contained in this document represents components of the legal health record. It is not the complete legal health record.[facility]
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
[2025-01-14 13:20] VITALS: BMI 31.5
[2025-01-18] VITALS (8 sets, daily range): BP systolic 115–152; BP diastolic 67–83; PULSE 64–83; RESP 14–18; TEMP 36.1–36.2; O2SAT 95–98; BMI 32.1
[2025-01-18] MEDS: Lactated Ringers 1,000 ML 100 ML IVCONT (07:01)
[2025-01-18 07:08] LABS: UPreg QC Valid YES
--- NOTE | 2025-01-18 07:25 | P.CONAN_ITS ---
Documented by User: Bree Mccann NP 01/17/25 09:51 HPI - Anesthesia Eval Consult details Narrative: 34yo M for Repair Hernia Umbilical Reducible,with possible mesh Pt reports agitation with emergence from GA F to M Transgender s/p bilateral mastectomy. Uterus remains. Testosterone IM weeekly [facility] Active Problems Active Problems: All Active Problems Umbilical hernia (Acute) Transgender man on hormone therapy (Acute) Family History Family History Paternal Grandmother Ovarian cancer Paternal Aunt Ovarian cancer Surgical History Surgical History (Updated 01/18/25 @ 06:16 by Tracey Miller, RN) H/O wrist surgery H/O bilateral mastectomy Social History Social History Alcohol intake: never Patient Tobacco Use Status: Never used Tobacco Have you been hit, kicked, punched, or otherwise hurt by someone within the past year? If so, by whom?: No Are you DNR?: No Advance Directives: No Advance Directives Information Provided: Yes Meds Allergies Allergy/AdvReac Type Severity Reaction Status Date / Time No Known Allergies Allergy Verified 09/08/24 09:49 Exam Height,Weight and Vital Signs: Height 6 ft Weight 105.233 kg Assessment and Plan Assessment Anesthesia Assessment: Chart Reviewed Documented by User: Irlanda Moreno DO 01/18/25 08:05 PMF Family History Family History Paternal Grandmother Ovarian cancer Paternal Aunt Ovarian cancer Family history of problems with anesthesia: No Surgical History Surgical History (Updated 01/18/25 @ 06:16 by Tracey Miller, RN) H/O wrist surgery H/O bilateral mastectomy History of Problems with Anesthesia: Yes (agitation upon emergence from GA) Social History Social History Alcohol intake: never Patient Tobacco Use Status: Never used Tobacco Have you been hit, kicked, punched, or otherwise hurt by someone within the past year? If so, by whom?: No Are you DNR?: No Advance Directives: No Advance Directives Information Provided: Yes Meds Allergies Allergy/AdvReac Type Severity Reaction Status Date / Time No Known Allergies Allergy Verified 09/08/24 09:49 Exam Exam Date and Time: 01/18/25 0725 Height,Weight and Vital Signs: Height 6 ft Weight 105.233 kg Vital Signs Temperature 97 F 01/18/25 06:03 Pulse Rate 78 01/18/25 06:03 Respiratory Rate 18 01/18/25 06:03 Blood Pressure 152/76 H 01/18/25 06:03 Pulse Oximetry 97 01/18/25 06:03 Oxygen Delivery Method Room Air 01/18/25 06:03 Temperature 97 F 01/18/25 06:03 Pulse Rate 78 01/18/25 06:03 Respiratory Rate 18 01/18/25 06:03 Blood Pressure 152/76 H 01/18/25 06:03 Pulse Oximetry 97 01/18/25 06:03 Oxygen Delivery Method Room Air 01/18/25 06:03 Airway Mallampati Class: II TM Dist: >3cm Neck ROM: Full Loose/Missing/Broken Teeth: No (patient denies any loose or broken teeth) Heart: S1S2 Lungs: CTAB Assessment and Plan Assessment Anesthesia Assessment: Anesthesia Plan Discussed and Chart Reviewed Final Anesthetic Review Family History of Problems with Anesthesia: No History of Problems with Anesthesia: Yes (agitation upon emergence from GA) NPO: Yes ASA Class: II Final Preanesthetic Review: No Changes in Pt Med Stat, Meds/Allgs Chart Reviewed, Consent Obtained/Reviewed and Anes Risks/Benef Reviewed Patient Risk: Low Procedure Risk: Low Anesthetic Plan Anesthetic Plan: GA and Agree w/ Assess. and Plan Disposition: Standard PACU
--- NOTE | 2025-01-18 07:34 | MHC.SHP ---
Pre-Procedural Eval Section A - 24 Hr Update-Section A only Date of Service: 01/18/25 Section B - Complete if H&P > 30 days Chief Complaint: Umbilical hernia without obstruction or gangrene Details of Present Illness: Has a small reducible umbilical hernia Relevant Social History: None Present Medications: see Short Stay Collaborative assessment Medical History: No relevant PMH History of Previous Operations: No relevant previous surgery Allergies: Allergies Allergy/AdvReac Type Severity Reaction Status Date / Time No Known Allergies Allergy Verified 09/08/24 09:49 Review of Systems Sugical H&P ROS: Negative: Constitution, Cardiovascular and Respiratory Exam Surgical H&P Exam: Normal: Heart and Normal: Lungs and Significant Findings: Abdomen (Small reducible umbilical hernia) Plan Diagnosis/Plan: Unchanged I have reviewed the history and physical and performed a pertinent physical examination on my patient. No changes have occurred unless specified. Time Spent With Patient Time: Total time managing care of this patient today ____ minutes.
--- NOTE | 2025-01-18 08:11 | W.PM.OPN ---
Operative Note Operative Note Date of Service: 01/18/25 Narrative: Preop diagnosis: Umbilical hernia reducible Postop diagnosis: Umbilical hernia, reducible, with a 1 cm defect Procedure: Repair of umbilical hernia with Phasix umbilical mesh Surgeon: Bill Hatch MD stores assistant: TERA Neff The patient is a 34-year-old male here for repair of an umbilical hernia. He understood the technique of the planned procedure as well as the risks, benefits, and alternatives. He was brought to the operating room. He was placed supine under general anesthesia via laryngeal mask airway. The abdomen was prepped and draped in the usual sterile fashion. A surgical time-out was done. The patient received cefazolin 2 g IV preoperatively I infiltrated the planned line of incision with lidocaine 1%. I made a supraumbilical transverse curvilinear incision with a blade 15. This was carried down through the full-thickness of the skin and subcutaneous fat. I then proceeded to gently sharply dissect the umbilicus as a flap with Metzenbaum scissors and was able to identify the hernia sac. I continued to separate the hernia sac with sharp dissection with the umbilical flap and the subcutaneous layer early down to the fascial defect. I dissected the thin adhesions of the. I dissected the fascial defect with Metzenbaum scissors until was able to reduce this completely. The fascial defect was about 1 cm in size. I used a small-sized Phasix umbilical mesh to forced the defect. This was flattened under the abdominal wall. I secured the Prolene straps of the mesh on both sides of the fascial defect with Prolene 2-0 sutures. I trimmed the Prolene straps flush on the fascial level. I closed the fascia with a [id number] Maxon 1 stitch. He umbilicus was tacked down to the fascia to re-create the dimple with Polysorb 3-0 simple sutures.. Subdermal layer was reapposed with Polysorb 3-0 simple interrupted sutures. The incision was closed with a running subcuticular Polysorb 4-0 stitch. The area was infiltrated with Marcaine 0.5% for postop analgesia. Dressings were applied and the procedure was completed. The patient tolerated the procedure well. There were no immediate complications. Initial and final counts of sponges and instruments were correct. Estimated blood loss was less than 10 cc. The patient was extubated without difficulty and transferred to the recovery room with stable vital signs.
[2025-01-18] MEDS: oxyCODONE HCl Immed Release 5 MG TABLET PO (08:59)
== END 2025-01-18 09:57 | disposition home or self-care (01) ==
PROVIDERS: Nurse Practitioner; PCP Nurse Practitioner Family; Visit Provider Surgery
PROC: (CPT 49591; principal; 2025-01-18 07:30)
DX: K42.9 Umbilical hernia without obstruction or gangrene (principal); Z79.1 Long term (current) use of non-steroidal anti-inflammatories (NSAID); Z79.899 Other long term (current) drug therapy; Z98.890 Other specified postprocedural states; Z90.13 Acquired absence of bilateral breasts and nipples
CPT/HCPCS: 49591; 81025; C1781; J0131; J0690; J1100; J1171; J1885; J2003; J2250; J2405; J2704; J2795; J3010

== ENCOUNTER → 2025-01-18 05:54 | Outpatient (BNV) | payer OTHER, SELFPAY | PROVIDERS: PCP Nurse Practitioner Family; Visit Provider Surgery | DX: K42.9 Umbilical hernia without obstruction or gangrene (principal) | CPT/HCPCS: 49591 ==

== ENCOUNTER 2025-01-31 10:50 | Outpatient (AMB) | payer OTHER, SELFPAY ==
--- NOTE | 2025-01-31 10:56 | MHC.OFFVIS ---
Vital Signs 01/31/25 11:03 Height 6 ft Weight 242 lb 6 oz BMI 32.9 BP 135/77 Blood Pressure Location Lt brachial Position Sitting Pulse 61 Intake Visit Reasons: S/P umbilical hernia w/poss mesh Intake Note: Patient is seen in office for post op assessment post repair of umbilical hernia with Phasix umbilical mesh. Pt c/o: denies any concerns healing as expected surgery:01/18/25 () Cephalometric Technician Required: No Accompanied by: Self / Same As Patient Allergies No Known Allergies Allergy (Verified 01/31/25 10:57) HPI HPI S/P umbilical hernia w/poss mesh: Details: Doing well, denies significant pain. He is wondering about when he can return to activity as he has a very physical job and will need to stay in shape for this. He understands that he must avoid heavy lifting for an extended period time in his avoiding it as best as possible as he does not want recurrence. Otherwise tolerating diet, bowel function at baseline. Denies fevers or chills. Denies drainage from incision site. [facility] Surgical History (Updated 01/31/25 @ 15:33 by Efrain Sinclair PA-C) History of umbilical hernia repair (01/18/25) H/O wrist surgery H/O bilateral mastectomy Family History Paternal Grandmother Ovarian cancer Paternal Aunt Ovarian cancer Social History Alcohol intake: never Patient Tobacco Use Status: Never used Tobacco Physical Exam Vital Signs: Last Vital Signs Pulse 61 01/31/25 11:03 BP 135/77 01/31/25 11:03 BMI result Body Mass Index 32.9 Const General: comfortable and no acute distress Orientation/consciousness: patient oriented x3 Resp Effort & Inspection: normal respiratory effort and able to speak in complete sentences GI Other: Umbilical hernia: Incision site intact, clean dry. No erythema, no fluctuance. Minimally tender to palpation. Inspection: No distended Palpation (GI): Soft to palpation and nontender Neuro General: patient oriented x3 Assessment & Plan Assessment & Plan (1) History of umbilical hernia repair: Onset Date: 01/18/25 Comment: with Phasix umbilical mesh- Bill Hatch MD Code(s): Z98.890 - Other specified postprocedural states; Z87.19 - Personal history of other diseases of the digestive system Category: Medical Plan 34-year-old male s/p umbilical hernia repair with Dr. Hatch on 01/18/2025, returning to the office for routine follow up. Overall doing well, denying significant pain. Has no concerns. Only has questions about returning to activity as this job requires significant heavy lifting. Appetite and bowel function at baseline. he appears well, on exam the incision appears to be healing well, no concern for infection at this time. We will continue with activity restrictions for 6 total weeks. At that point he can slowly advance activity starting with body weight and working up towards his baseline. Recommended taking things slow, he understands this and is agreeable to this plan. He will return in 3 weeks for routine follow up. He can return as needed sooner with any questions or concerns. Coding Level of Care Code Est Pt Level 4 (14696) Diagnoses History of umbilical hernia repair Z98.890; Z87.19
[2025-01-31 11:03] VITALS: BP 135/77; PULSE 61; BMI 32.9
== END 2025-01-31 11:18 | disposition home or self-care (01) ==
LOC: HO.HGS 10:51
PROVIDERS: PCP Internal Medicine
DX: Z98.890 Other specified postprocedural states (principal); Z87.19 Personal history of other diseases of the digestive system
CPT/HCPCS: 99214

== ENCOUNTER → 2025-01-31 10:50 | Outpatient (BNVA) | payer OTHER, SELFPAY | PROVIDERS: PCP Internal Medicine | DX: Z48.815 Encounter for surgical aftercare following surgery on the digestive system (principal); Z98.890 Other specified postprocedural states; Z87.19 Personal history of other diseases of the digestive system | CPT/HCPCS: 99212 ==

== ENCOUNTER 2025-03-01 09:59 | Outpatient (AMB) | payer OTHER, SELFPAY ==
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
[2025-03-01 10:11] VITALS: BP 143/84; PULSE 68; BMI 33.8
--- OUTSIDE RECORDS SUMMARY | 2025-03-01 12:09 | XMS_ITS | Clinical Summary ---
Author Organization [facility] Address [address] [place] [phone] Phone Care Team Providers Care Water Sander Name Role Phone Greta Curtis MD, MPH [...] been in a lot of [facility] that focus on trauma Assessment & [...] 12/31/2024 11:59 PM EDT Hospital Encounter [facility] [address] [place], [place] [address] Анна Andrew, KRYSTAL Discharge Disposition: Home or [...] Smoking Tobacco: Former Cigarettes 0.3 10 2 - 2015 Smokeless Tobacco: Former Comments:1 PPW [...] Procedure Name Priority Date/Time Associated Diagnosis Comments CBC AND DIFFERENTIAL Routine 02/18/2025 7:44 AM EST Transsexualism Other senior care (current) drug therapy CBC AND DIFFERENTIAL Routine 02/18/2025 7:44 AM EST Transsexualism Other senior care (current) drug therapy TESTOSTERONE, TOTAL AND FREE, EQUILIBRIUM DIALYSIS/MASS SPECTROMETRY Routine 02/18/2025 7:44 AM EST Transsexualism Other terminal system operator (current) drug therapy TESTOSTERONE, TOTAL AND FREE, EQUILIBRIUM DIALYSIS/MASS SPECTROMETRY Routine 12/31/2024 8:00 AM EDT Transgender Other senior care (current) drug therapy CBC Routine 12/31/2024 8:00 AM EDT Transgender Other terminal system operator (current) drug 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 Pathologist [facility] Testosterone, Total, S 1513(H) 250 - 1100 ng/dL 02/27/2025 4:22 PM EST [facility] - SEE TEST RESULT COMMENT Comment: For additional information, please refer to http://education.Cinnafilm/faq/TotalTestosteroneL CMSGA (This link is being provided for informational/educational purposes only.) Testosterone Free 318.0(H) 35.0 - 155.0 pg/mL 02/27/2025 4:22 PM EST [facility] - SEE TEST RESULT COMMENT Comment: This test was developed and its analytical performance characteristics have been determined by [employer]. It has not been cleared or approved by the FDA. This assay has been validated pursuant to the CLIA regulations and is used for clinical purposes. Test Performed by: [employer]/[facility] [address] [place] [address] Blood (Blood) Venipuncture / Unknown 02/18/2025 7:44 AM EST 02/18/2025 7:44 AM EST us Анна Andrew CUSTOMER QUALITY SPECIALIST LAB BLOOD BKR ORDERABLES Fin al Result [facility]LL (BEAKER) [facility] - SEE TEST RESULT COMMENT See Address in Comment * (ABNORMAL) CBC and Differential (02/18/2025 7:44 AM EST) Pathologist [facility] WBC 8.73 4.00 - 11.00 K/uL 02/18/2025 1:21 PM EST [facility] RBC 5.11 4.50 - 5.90 M/uL 02/18/2025 1:21 PM [facility] Hemoglobin 16.7 >6.0 - <21.0 g/dL 02/18/2025 1:21 PM [facility] Hematocrit 47.2 41.0 - 53.0 % 02/18/2025 1:21 PM [facility] MCV 92.4 80.0 - 100.0 fL 02/18/2025 1:21 PM [facility] MCH 32.7(H) 27.0 - 31.0 pg 02/18/2025 1:21 PM [facility] MCHC 35.4 32.0 - 36.0 g/dL 02/18/2025 1: PM [facility] MPV 9.1 8.4 - 12.0 fL 02/18/2025 1: PM [facility] RDW-CV 11.9 11.5 - 14.5 % 02/18/2025 1: PM [facility] PLT 279 150 - 450 K/uL 02/18/2025 1: PM [facility] Neutrophils 49.6 % 02/18/2025 1: PM [facility] Lymphocytes 38.4 % 02/18/2025 1: PM [facility] Monocytes 8.0 % 02/18/2025 1: PM [facility] Eosinophils 3.1 % 02/18/2025 1: PM [facility] Basophils 0.7 % 02/18/2025 1: PM [facility] Imm Grans 0.2 % 02/18/2025 1:21 PM [facility] NRBC 0.0 <=0.0 /100 WBCs 02/18/2025 1:21 PM [facility] Absolute Neutrophils 4.33 1.92 - 7.60 K/uL 02/18/2025 1:21 PM [facility] Absolute Lymphocytes 3.35 0.72 - 4.10 K/uL 02/18/2025 1: PM [facility] Absolute Monocytes 0.70 0.16 - 1.10 K/uL 02/18/2025 1:21 PM [facility] Absolute Eosinophils 0.27 0.00 - 0.50 K/uL 02/18/2025 1:21 PM [facility] Absolute Basophils 0.06 0.00 - 0.15 K/uL 02/18/2025 1:21 PM EST [facility] Absolute Imm Grans 0.02 0.00 - 0.09 K/uL 02/18/2025 1:21 PM EST [facility] Absolute NRBC 0.00 <=0.00 K cells/uL 02/18/2025 1:21 PM [facility] Absolute Neutrophils 4.33 1.92 - 7.60 K/uL 02/18/2025 1:21 PM [facility] Comment:Automated cell count . Manual ANC may differ if performed. Diff Type Auto 02/18/2025 1:21 PM [facility] Blood (Blood) Venipuncture / Unknown 02/18/2025 7:44 AM EST 02/18/2025 7:44 AM EST us Анна Andrew CUSTOMER QUALITY SPECIALIST LAB BLOOD BKR ORDERABLES Fin al Result Performing Organization Address City/State/[facility] Co de Phone Number [address] [phone] * (ABNORMAL) CBC (12/31/2024 8:00 AM EDT) WBC 7.74 4.00 - 11.00 K/uL [facility] RBC 5.36 4.50 - 5.90 M/uL [facility] HGB 17.7(H) 13.5 - 17.5 g/dL [facility] HCT 50.4 41.0 - 53.0 % [facility] PLT 272 150 - 450 K/uL [facility] MCV 94.0 80.0 - 100.0 fL [facility] MCH 33.0(H) 27.0 - 31.0 pg [facility] MCHC 35.1 32.0 - 36.0 g/dL [facility] RDW 11.9 11.5 - 14.5 % [facility] MPV 9.2 8.4 - 12.0 fL [facility] NRBC 0.00 0.00 /100 WBCs [facility] ABSOLUTE NRBC 0.00 0.00 K/uL [facility] Blood 12/31/2024 8:00 AM EDT 12/31/2024 8:03 AM EDT us Анна Andrew NP LAB BLOOD BKR ORDERABLES Fin al Result Performing Organization Address City/[facility]/ZIP Co de Phone Number [address] [address] * (ABNORMAL) Lipid panel (2021 8:58 AM EDT) HDL 44 mg/dL [facility] Comment: Interpretation <40 mg/dL: Low HDL cholesterol (major risk factor for CHD) Greater than or equal to 60 mg/dL: High HDL cholesterol ( negative risk factor for CHD) HDL - cholesterol is affected by a number of factors, e.g. smoking, excerise, hormones, sex and age. CHOLESTEROL 238 0 - 240 mg/dL [facility] TRIGLYCERIDES 137 30 - 160 mg/dL [facility] LDL 167(H) 50 - 129 mg/dL [facility] Comment: LDL levels in terms of risk for coronary heart disease: <100 mg/dL: Optimal 100-129 mg/dL: Near or above optimal 130-159 mg/dL: Borderline high 160-189 mg/dL: High >190 mg/dL: Very High CARDIAC RISK RATIO 5.4(H) 3.4 - 5.0 C [facility] Blood 2021 8:58 AM EDT 2021 9:00 AM EDT us Greta Curtis MD, MPH LAB BLOOD BKR ORDERA BLES Final Result Performing Organization Address [facility]/ZIP Co de Phone Number [address] [address] * (ABNORMAL) Glucose (04/30/2018 9:37 AM EST) GLUCOSE 100(H) 70 - 99 mg/dL [facility] Blood 04/30/2018 9:37 AM EST 04/30/2018 9:39 AM EST us Asia Alcaraz [employer] LAB BLOOD BKR ORDERAB LES Final Result [address] [address] * OUTSIDE HIV TEST (05/24/2016) HIV - External Neg us Historical Provider LAB BLOOD ORDERABLES Nieves l Result from Last 3 Months or Most Recently Relevant to Health Maintenance Insurance ACO ACO ACO ACO ACO ACO Member Subscriber Plan / Payer (Ef fective 2022-Present) Name:Andriy Devlin Relation to Subscriber:Self Name:Andriy Devlin Payer ID:[id number] Group ID:[id number] Type:Medicaid Address: [place] [id number] [employer] Care Teams Water Sander Relationship Specialty Start Date End Date Greta Curtis MD, MPH [address] [place] [phone] [email or web address] PCP - General Family Medicine 12/01/20 Additional Source Comments The information contained in this document represents components of the legal health record. It is not the complete legal health record.[facility]
--- OUTSIDE RECORDS SUMMARY | 2025-03-01 12:09 | XMS_ITS | Encounter Summary ---
Author Organization [facility] Address [address] [place] [address] [address] [place] [address] Phone Care Team Providers Care Manager Internet Name Role Phone Grtea Curtis MD, MPH Primary Care Provid er Encounter Details Date Type Department Care Team (Late st Contact Info) Description 2021 Transcribe Orders [facility] [address] [place] [address] Greta Curtis MD, MPH [address] [facility] [address] [place] [address] [email or web address] Social History Tobacco Use Types Packs/Day Years Used Date Smoking Tobacco: Former Cigarettes 0.3 10 2015 Smokeless Tobacco: Former Comments:1 PPW per [...] high school, GED, job training, learning the Armenian language, technical skills, or developing parenting skills)? [...] documented as of this encounter Care Teams Manager Internet Relationship Specialty Start Date End Date Greta Curtis MD, MPH [address] [place] [address] [email or web address] PCP - General Family Medicine 12/01/20 documented as of this encounter Additional Source Comments The information contained in this document represents components of the legal health record. It is not the complete legal health record.[facility]
== END 2025-03-01 10:12 | disposition home or self-care (01) ==
LOC: HO.HGS 09:59
PROVIDERS: PCP Internal Medicine; Visit Provider Surgery
DX: K42.9 Umbilical hernia without obstruction or gangrene (principal)
CPT/HCPCS: 99024

== ENCOUNTER → 2025-03-01 09:59 | Outpatient (BNVA) | payer OTHER, SELFPAY | PROVIDERS: PCP Internal Medicine; Visit Provider Surgery | DX: Z98.890 Other specified postprocedural states (principal); K42.9 Umbilical hernia without obstruction or gangrene | CPT/HCPCS: 99212 ==

== ENCOUNTER 2025-03-07 11:36 | Outpatient (AMB) | payer OTHER, SELFPAY ==
--- NOTE | 2025-03-07 11:41 | A.OFFVIS_ITS ---
Intake Visit Reasons: labs/UA Intake Note: Patient presents today for follow up testosterone management/labs Labs done 12/31/24: Testosterone Total :419 ; Free Testosterone: 10.1 Urology Medications: testosterone Blood Thinner: none Setter Machine Required: No Accompanied by: Self / Same As Patient Allergies No Known Allergies Allergy (Verified 03/07/25 14:27) Medication List - Last Reconciled 03/07/25 by MARGOT Anderson-SOHAIL ibuprofen 600 mg PO Q6H PRN testosterone cypionate 200 mg IM QWEEK 30 days HPI Comments Details: Andriy is a 34-year-old transgender male patient of Dr. Avery. He presents to the office today for follow-up. He reports being born a female however since 2008 has been undergoing testosterone hormonal treatment. He has a history of double mastectomy in 2010. He denies any other surgical procedures. Recent CBC results and testosterone results reviewed with the patient today. As noted and trended below: Testosterone: 11/06 589, 05/10 499, 11/07 292, 02/07 894, 07/09 1150, 03/10 1513 Testosterone free: 11/06--12.4%, 05/10 16.5, 11/07 6.60, 02/07 23.4, 07/09 32.4, 03/10 318.0 Hemoglobin: 11/06 17.2, 05/10 16.0, 11/07 16.6, 02/07 18.1, 07/09 17.3, 03/10 16.7 Hematocrit: 11/06 50.0, 05/10 47.4, 11/07 46.4, 02/07 50.2, 07/09 50.0, 03/10 47.2 In discussion with the patient today he reports to be doing and feeling well. He reports to be injecting testosterone 50 mg 2 times per week and felt this has been helpful in normalizing his overall health and well-being. He discusses having underwent umbilical hernia repair with Dr. Hatch 02/08 and has been recovering well. We did discuss at length increase in testosterone levels and decreasing testosterone dose. We discussed abnormal levels of lipids in the blood, increase in blood pressure, cardiovascular disease, and or weight gain with testosterone therapy. He discusses having recently made a new patient appointment here at [facility] to establish new PCP care. We discussed importance of assessing cardiovascular function given affects of testosterone replacement. He denies any urinary issues. He reports be happy with current voiding parameters. In office urinalysis results reviewed with the patient today. He otherwise offers no issues or concerns at this time. [facility] Surgical History History of umbilical hernia repair (01/18/25) H/O wrist surgery H/O bilateral mastectomy Family History Paternal Grandmother Ovarian cancer Paternal Aunt Ovarian cancer Social History Alcohol intake: never Patient Tobacco Use Status: Never used Tobacco Review of Systems Const All systems reviewed & are unremarkable except as noted in HPI and below Physical Exam Const General: cooperative, healthy appearing, comfortable, no acute distress, well developed, alert and awake Orientation/consciousness: patient oriented x3 Limitations: no limitations HEENT Head: Yes normal to inspection, Yes normocephalic and Yes atraumatic Ears: hearing grossly normal bilaterally Eyes General: appearance normal, both eyes and all related structures Neck Neck: Yes normal visual inspection and Yes trachea midline Chest Chest palpation & inspection: normal inspection of the chest Resp Effort & Inspection: normal respiratory effort and able to speak in complete sentences Cardio Rate: regular rate GI Inspection: Yes normal to inspection General: Yes no CVA tenderness Back/Spine/Pelvis Back: no CVA tenderness Skin General skin exam: no rashes or lesions noted Neuro General: patient oriented x3 Extrem General: Yes normal to inspection Psych Appearance: grossly normal and well kempt Mental Status: mental status grossly normal Speech and movement: Clear speech present Affect: normal affect Attitude: cooperative Thought process: Normal thought process present Thought content: Normal thought content present Insight: Fair insight present (Psych) Judgement: Fair judgement present (Psych) Results AMB Urinalysis, Automated UA Leukoctes 0 Khalif/uL Last Edit by Tatiana Colon, [facility] on 03/07/25 11:52 UA Nitrite Negative Last Edit by Tatiana Colon, [facility] on 03/07/25 11:52 UA Urobilinogen 0.2 mg/dL Last Edit by Tatiana Colon, [facility] on 03/07/25 11:52 UA Protein 0 mg/dL Last Edit by Tatiana Colon, [facility] on 03/07/25 11:52 UA pH 7.0 Last Edit by Tatiana Colon, [facility] on 03/07/25 11:52 UA Blood 0 Ignacio/uL Last Edit by Tatiana Colon, [facility] on 03/07/25 11:52 UA Specific [place] 1.005 Last Edit by Tatiana Colon, [facility] on 03/07/25 11:5 2 UA Ketone Negative Last Edit by Tatiana Colon, [facility] on 03/07/25 11:52 UA Bilirubin 0 mg/dL Last Edit by Tatiana Colon, [facility] on 03/07/25 11:52 UA Glucose 0 mg/dL Last Edit by Tatiana Colon, [facility] on 03/07/25 11:52 Results Reviewed Results Reviewed: Laboratory Last Values Urine pH (Auto) 7.0 03/07/25 11:51 Specific [place] (Auto) 1.005 03/07/25 11:51 Urine Protein (Auto) 0 mg/dL 03/07/25 11:51 Glucose (UA)(Auto) 0 mg/dL 03/07/25 11:51 Urine Ketones (Auto) Negative 03/07/25 11:51 Urine Blood (Auto) 0 Ignacio/uL 03/07/25 11:51 Urine Nitrite (Auto) Negative 03/07/25 11:51 Urine Bilirubin (Auto) 0 mg/dL 03/07/25 11:51 Urine Urobilinogen (Auto) 0.2 mg/dL 03/07/25 11:51 Leukocyte Esterase (Auto) 0 Khalif/uL 03/07/25 11:51 Assessment & Plan Assessment & Plan (1) 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 Most recent testosterone, free testosterone, hemoglobin, and hematocrit results reviewed with the patient today; as noted above. Continue with testosterone as discussed and prescribed however will decrease dosage. We did discuss importance of drawn labs 2 days after injection day. Discussed at length affects of testosterone on the body as well as overall health and well-being. Patient denies any urinary issues or concerns at this time. He is happy with his current voiding parameters Discussed, educated, and stressed the importance of taking medication as prescribed. Will reassess labs in 3 months (CBC and testosterone free and total) Follow-up in 3 months with labs to be completed prior or sooner with any issues, concerns, and or questions. 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 All questions were answered. Physical exam, labs, and imaging were discussed and reviewed in detail. As well as risks, benefits, and discussion of treatment choices. No major barriers to understanding were identified. The patient expressed understanding and agreement with the above treatment plan. The patient was made aware they should contact our office by phone for worsening of their current condition, the appearance of new symptoms, or with any questions or concerns. Compliance is encouraged with any medications and follow up testing that is ordered. It is a privilege to be allowed the opportunity to participate in? your urological care.? Again, if you have any questions or concerns If you have any questions or concerns please do not hesitate to contact me. The office is [phone]. This note is constructed using voice recognition software. While every effort has been made to ensure accuracy envelope folding machine adjuster errors may have been included. 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
--- OUTSIDE RECORDS SUMMARY | 2025-03-07 14:53 | XMS_ITS | Clinical Summary ---
Author Organization [facility] Address [address] [place] [phone] Phone Care Team Providers Care Personal Shopper Name Role Phone Greta Curtis MD, MPH [...] been in a lot of [facility] that focus on trauma Assessment & [...] 11:59 PM EDT Hospital Encounter [facility] [address] [place], [place] [address] Анна Andrew, KRYSTAL Discharge Disposition: Home or [...] Routine 02/18/2025 7:44 AM EST Transsexualism Other mcfp (current) drug therapy CBC AND DIFFERENTIAL Routine 02/18/2025 7:44 AM EST Transsexualism Other mcfp (current) drug therapy TESTOSTERONE, TOTAL AND FREE, EQUILIBRIUM DIALYSIS/MASS SPECTROMETRY Routine 02/18/2025 7:44 AM EST Transsexualism 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 truck 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 therapy TESTOSTERONE, TOTAL AND FREE, EQUILIBRIUM DIALYSIS/MASS SPECTROMETRY Routine 12/31/2024 8:00 AM EDT Transgender Other mcfp (current) drug therapy CBC Routine 12/31/2024 8:00 AM EDT Transgender 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 Pathologist [facility] Testosterone, Total, S 1513(H) 250 - 1100 ng/dL 02/27/2025 4:22 PM EST [facility] - SEE TEST RESULT COMMENT Comment: For additional information, please refer to http://education.[employer]/faq/TotalTestosteroneL CMSSD (This link is being provided for informational/educational purposes only.) Testosterone Free 318.0(H) 35.0 - 155.0 pg/mL 02/27/2025 4:22 PM EST [facility] - SEE TEST RESULT COMMENT Comment: This test was developed and its analytical performance characteristics have been determined by [facility]. It has not been cleared or approved by the FDA. This assay has been validated pursuant to the CLIA regulations and is used for clinical purposes. Test Performed by: [facility] [address] [place] [address] Blood (Blood) Venipuncture / Unknown 02/18/2025 7:44 AM EST 02/18/2025 7:44 AM EST us Анна Andrew SENIOR PATIENT ACCOUNT REPRESENTATIVE LAB BLOOD BKR ORDERABLES Fin al Result [facility] (BEAKER) [facility] - SEE TEST RESULT COMMENT See Address in Comment * (ABNORMAL) CBC and Differential (02/18/2025 7:44 AM EST) Pathologist [facility] WBC 8.73 4.00 - 11.00 K/uL 02/18/2025 1:21 PM EST [facility] RBC 5.11 4.50 - 5.90 M/uL 02/18/2025 1:21 PM [facility] Hemoglobin 16.7 >6.0 - <21.0 g/dL 02/18/2025 1:21 PM [facility] Hematocrit 47.2 41.0 - 53.0 % 02/18/2025 1:21 PM [facility] MCV 92.4 80.0 - 100.0 fL 02/18/2025 1:21 PM [facility] MCH 32.7(H) 27.0 - 31.0 pg 02/18/2025 1:21 PM [facility] MCHC 35.4 32.0 - 36.0 g/dL 02/18/2025 1: PM [facility] MPV 9.1 8.4 - 12.0 fL 02/18/2025 1: PM [facility] RDW-CV 11.9 11.5 - 14.5 % 02/18/2025 1: PM [facility] PLT 279 150 - 450 K/uL 02/18/2025 1: PM [facility] Neutrophils 49.6 % 02/18/2025 1: PM [facility] Lymphocytes 38.4 % 02/18/2025 1: PM [facility] Monocytes 8.0 % 02/18/2025 1: PM [facility] Eosinophils 3.1 % 02/18/2025 1: PM [facility] Basophils 0.7 % 02/18/2025 1: PM [facility] Imm Grans 0.2 % 02/18/2025 1:21 PM [facility] NRBC 0.0 <=0.0 /100 WBCs 02/18/2025 1:21 PM [facility] Absolute Neutrophils 4.33 1.92 - 7.60 K/uL 02/18/2025 1:21 PM [facility] Absolute Lymphocytes 3.35 0.72 - 4.10 K/uL 02/18/2025 1: PM [facility] Absolute Monocytes 0.70 0.16 - 1.10 K/uL 02/18/2025 1:21 PM [facility] Absolute Eosinophils 0.27 0.00 - 0.50 K/uL 02/18/2025 1:21 PM [facility] Absolute Basophils 0.06 0.00 - 0.15 K/uL 02/18/2025 1:21 PM EST [facility] Absolute Imm Grans 0.02 0.00 - 0.09 K/uL 02/18/2025 1:21 PM EST [facility] Absolute NRBC 0.00 <=0.00 K cells/uL 02/18/2025 1:21 PM [facility] Absolute Neutrophils 4.33 1.92 - 7.60 K/uL 02/18/2025 1:21 PM [facility] Comment:Automated cell count . Manual ANC may differ if performed. Diff Type Auto 02/18/2025 1:21 PM [facility] Blood (Blood) Venipuncture / Unknown 02/18/2025 7:44 AM EST 02/18/2025 7:44 AM EST us Анна Andrew SENIOR PATIENT ACCOUNT REPRESENTATIVE LAB BLOOD BKR ORDERABLES Fin al Result Performing Organization Address City/State/[facility] Co de Phone Number [address] [address] * (ABNORMAL) CBC (12/31/2024 8:00 AM EDT) WBC 7.74 4.00 - 11.00 K/uL [facility] RBC 5.36 4.50 - 5.90 M/uL [facility] HGB 17.7(H) 13.5 - 17.5 g/dL [facility] HCT 50.4 41.0 - 53.0 % [facility] PLT 272 150 - 450 K/uL [facility] MCV 94.0 80.0 - 100.0 fL [facility] MCH 33.0(H) 27.0 - 31.0 pg [facility] MCHC 35.1 32.0 - 36.0 g/dL [facility] RDW 11.9 11.5 - 14.5 % [facility] MPV 9.2 8.4 - 12.0 fL [facility] NRBC 0.00 0.00 /100 WBCs [facility] ABSOLUTE NRBC 0.00 0.00 K/uL [facility] Blood 12/31/2024 8:00 AM EDT 12/31/2024 8:03 AM EDT us Анна Andrew NP LAB BLOOD BKR ORDERABLES Fin al Result Performing Organization Address City/[facility]/ZIP Co de Phone Number [address] [address] * (ABNORMAL) Lipid panel (2021 8:58 AM EDT) HDL 44 mg/dL [facility] Comment: Interpretation <40 mg/dL: Low HDL cholesterol (major risk factor for CHD) Greater than or equal to 60 mg/dL: High HDL cholesterol ( negative risk factor for CHD) HDL - cholesterol is affected by a number of factors, e.g. smoking, excerise, hormones, sex and age. CHOLESTEROL 238 0 - 240 mg/dL [facility] TRIGLYCERIDES 137 30 - 160 mg/dL [facility] LDL 167(H) 50 - 129 mg/dL [facility] Comment: LDL levels in terms of risk for coronary heart disease: <100 mg/dL: Optimal 100-129 mg/dL: Near or above optimal 130-159 mg/dL: Borderline high 160-189 mg/dL: High >190 mg/dL: Very High CARDIAC RISK RATIO 5.4(H) 3.4 - 5.0 [facility] Blood 2021 8:58 AM EDT 2021 9:00 AM EDT us Greta Curtis MD, MPH LAB BLOOD BKR ORDERA BLES Final Result Performing Organization Address [facility]/ZIP Co de Phone Number [address] [address] * (ABNORMAL) Glucose (04/30/2018 9:37 AM EST) GLUCOSE 100(H) 70 - 99 mg/dL [facility] Blood 04/30/2018 9:37 AM EST 04/30/2018 9:39 AM EST us Asia Alcaraz PRODUCTION SHIFT SUPERVISOR LAB BLOOD BKR ORDERAB LES Final Result [address] [address] * OUTSIDE HIV TEST (05/24/2016) HIV - External Neg us Historical Provider LAB BLOOD ORDERABLES Nieves l Result from Last 3 Months or Most Recently Relevant to Health Maintenance Insurance ACO ACO ACO ACO ACO ACO Member Subscriber Plan / Payer (Ef fective 2022-Present) Name:Andriy Devlin Relation to Subscriber:Self Name:Andriy Devlin Payer ID:[id number] Group ID:[id number] Type:Medicaid Address: [place] [id number] [employer] Care Teams Personal Shopper Relationship Specialty Start Date End Date Greta Curtis MD, MPH [address] [place] [phone] [email or web address] PCP - General Family Medicine 12/01/20 Additional Source Comments The information contained in this document represents components of the legal health record. It is not the complete legal health record.[facility]
--- OUTSIDE RECORDS SUMMARY | 2025-03-07 14:53 | XMS_ITS | Encounter Summary ---
Author Organization [facility] Address [address] [place] [address] [address] [place] [address] Phone Care Team Providers Care Lead Printer Name Role Phone Greta Curtis MD, MPH Primary Care Provid er Encounter Details Date Type Department Care Team (Late st Contact Info) Description 2021 Transcribe Orders [facility] [address] [place] [address] Greta Curtis MD, MPH [address] [facility] [address] [place] [address] [email or web address] Social History Tobacco Use Types Packs/Day Years [...] high school, GED, job training, learning the [place] language, technical skills, or developing parenting skills)? [...] documented as of this encounter Care Teams Lead Printer Relationship Specialty Start Date End Date Greta Curtis MD, MPH [address] [place] [address] [email or web address] PCP - General Family Medicine 12/01/20 documented as of this encounter Additional Source Comments The information contained in this document represents components of the legal health record. It is not the complete legal health record.[facility]
== END 2025-03-07 12:15 | disposition home or self-care (01) ==
LOC: HO.HUSH 11:37
PROVIDERS: Visit Provider Nurse Practitioner Family
DX: F64.0 Transsexualism (principal); Z79.899 Other long term (current) drug therapy; N40.1 Benign prostatic hyperplasia with lower urinary tract symptoms; N13.8 Other obstructive and reflux uropathy
CPT/HCPCS: 99213

== ENCOUNTER → 2025-03-07 11:36 | Outpatient (BNVA) | payer OTHER, SELFPAY | PROVIDERS: Visit Provider Nurse Practitioner Family | DX: F64.0 Transsexualism (principal); N13.8 Other obstructive and reflux uropathy; Z79.899 Other long term (current) drug therapy | CPT/HCPCS: 81003; 99212 ==